=== PATIENT | male | born 1950 | race Caucasian/White ===

== ENCOUNTER 2020-12-17 08:34 | Day surgery (SDC) | payer OTHER, MEDICARE ==
[2020-12-17 09:03] VITALS: TEMP 98.2
[2020-12-17 09:05] VITALS: BMI 26.1
[2020-12-17] MEDS ORDERED: LIDOCAINE HCL/PF 2% SDV 5ML VIAL ONE (10:02)
[2020-12-17] MEDS ORDERED: PROPOFOL 20 ML ONE ×3 (10:02)
[2020-12-17 10:37] VITALS: BP 122/85
[2020-12-17 11:19] VITALS: PULSE 64
== END 2020-12-17 11:05 | disposition home or self-care (01) ==
LOC: FASU-ENDO 08:34
PROVIDERS: ATTEND Internal Medicine Gastroenterology
PROC: 0DJD8ZZ Inspection of Lower Intestinal Tract, Via Natural or Artificial Opening Endoscopic (ICD-10-PCS; principal; 2020-12-17 09:52)
DX: Z12.11 Encounter for screening for malignant neoplasm of colon (principal); K57.30 Diverticulosis of large intestine without perforation or abscess without bleeding; Z86.010 Personal history of colon polyps